=== PATIENT | female | born 1955 | race Caucasian/White ===

== ENCOUNTER 2023-07-16 06:39 | Emergency (ER) | payer OTHER ==
--- NOTE | 2023-07-16 08:09 | RAD REPORT ---
EXAM DESCRIPTION: CT - Head Brain Wo Cont - 07/16/2023 7:17 am CLINICAL HISTORY: HEADACHE COMPARISON: No comparisons TECHNIQUE: Noncontrast head CT images were obtained without IV contrast. Multiplanar reformats were generated and reviewed. All CT scans are performed using dose optimization technique as appropriate and may include automated exposure control or mA/KV adjustment according to patient size. FINDINGS: No intracranial hemorrhage, mass, or edema. Midline structures are unremarkable. Normal ventricular caliber for age. Flowers-white matter differentiation is preserved, without evidence of acute infarct. No abnormal extra- axial fluid collections. Mastoid air cells are well aerated. Scattered inflammatory mucosal thickening the paranasal sinuses w ith up to moderate polypoidal mucosal thickening in the maxillary sinuses. No acute bony findings. IMPRESSION: No evidence of an acute intracranial process.
--- NOTE | 2023-07-16 08:15 | EDPHYS ---
Physician Documentation [facility] Name: Diana Shay Age: 67 yrs Sex: Female : 1955 Arrival Date: 07/16/2023 Time: 06:39 Bed 8 Private MD: Zbigniew Baker HPI: 07/15 07:06 This 67 yrs old Female presents to ER via Ambulatory with complaints of alondra SUSPICIOUS BRUISE UNDER EYE, PT HAS H/O ANEURISM. 07:06 The patient or guardian reports pain, swelling, tenderness. The complaints affect the alondra left cheek and left eye. Context of injury: The problem was sustained at an unknown location. Onset: The symptoms/episode began/occurred 1 day(s) ago. Associated signs and symptoms: Loss of consciousness: This patient did not experience any loss of consciousness. The patient is experiencing pain. Aggravated by nothing. Alleviated by nothing. Severity of symptoms: At their worst the symptoms were mild, yesterday. Historical: - Allergies: 07:01 No Known Allergies; pf1 - PMHx: 07:01 Aneurysm; Hypertensive disorder; Hypothyroidism; brain bleed; pf1 - PSHx: 07:01 colonoscopy; Total abdominal hysterectomy; pf1 - Immunization history:: Adult Immunizations up to date, Client reports receiving the 2nd dose of the Covid vaccine, [employer] Last tetanus immunization: < 10 years ago Flu vaccine is up to date. - Infectious Disease History:: Denies. - Social history:: Smoking status: Patient denies any tobacco usage or history of. Patient/guardian denies using alcohol, street drugs. - Family history:: not pertinent. ROS: 07:06 Constitutional: Negative for fever, chills, and weight loss, Eyes: Negative for injury, alondra pain, redness, and discharge, ENT: Negative for injury, pain, and discharge, Neck: Negative for injury, pain, and swelling, Cardiovascular: Negative for chest pain, palpitations, and edema, Respiratory: Negative for shortness of breath, cough, wheezing, and pleuritic chest pain, Abdomen/GI: Negative for abdominal pain, nausea, vomiting, diarrhea, and constipation, Back: Negative for injury and pain, : Negative for injury, bleeding, discharge, and swelling, MS/Extremity: Negative for injury and deformity, Neuro: Negative for headache, weakness, numbness, tingling, and seizure, Psych: Negative for depression, anxiety, suicide ideation, homicidal ideation, and hallucinations, Allergy/Immunology: Negative for hives, rash, and allergies, Endocrine: Negative for neck swelling, polydipsia, polyuria, polyphagia, and marked weight changes, Hematologic/Lymphatic: Negative for swollen nodes, abnormal bleeding, and unusual bruising, 07:06 Skin: Positive for ecchymosis, of the left cheek and left eye, Exam: 07:06 Constitutional: This is a well developed, well nourished patient who is awake, alert, alondra and in no acute distress. Eyes: Pupils equal round and reactive to light, extra-ocular motions intact. Lids and lashes normal. Conjunctiva and sclera are non-icteric and not injected. Cornea within normal limits. Periorbital areas with no swelling, redness, or edema. ENT: Nares patent. No nasal discharge, no septal abnormalities noted. Tympanic membranes are normal and external auditory canals are clear. Oropharynx with no redness, swelling, or masses, exudates, or evidence of obstruction, uvula midline. Mucous membranes moist. Neck: Trachea midline, no thyromegaly or masses palpated, and no cervical lymphadenopathy. Supple, full range of motion without nuchal rigidity, or vertebral point tenderness. No Meningismus. Chest/axilla: Normal chest wall appearance and motion. Nontender with no deformity. No lesions are appreciated. Cardiovascular: Regular rate and rhythm with a normal S1 and S2. No gallops, murmurs, or rubs. Normal PMI, no JVD. No pulse deficits. Respiratory: Lungs have equal breath sounds bilaterally, clear to auscultation and percussion. No rales, rhonchi or wheezes noted. No increased work of breathing, no retractions or nasal flaring. Abdomen/GI: Soft, non-tender, with normal bowel sounds. No distension or tympany. No guarding or rebound. No evidence of tenderness throughout. Back: No spinal tenderness. No costovertebral tenderness. Full range of motion. Skin: Warm, dry with normal turgor. Normal color with no rashes, no lesions, and no evidence of cellulitis. MS/ Extremity: Pulses equal, no cyanosis. Neurovascular intact. Full, normal range of motion. Neuro: Awake and alert, GCS 15, oriented to person, place, time, and situation. Cranial nerves II-XII grossly intact. Motor strength 5/5 in all extremities. Sensory grossly intact. Cerebellar exam normal. Normal gait. Psych: Awake, alert, with orientation to person, place and time. Behavior, mood, and affect are within normal limits. 07:06 Head/face: Noted is ecchymosis, swelling, that is mild, of the left cheek and left eye, Vital Signs: 06:48 BP 146 / 86; Pulse 69; Resp 18; Temp 97.5; Pulse Ox 97% on R/A; Weight 73.48 kg; Height pf1 5 ft. 4 in. ; Pain 2/10; 07:24 BP 153 / 87; Pulse 71; Resp 18; Pulse Ox 94% on R/A; ld1 09:24 BP 144 / 76; Pulse 75; Resp 18; Pulse Ox 100% on R/A; ld1 06:48 Body Mass Index 27.81 (73.48 kg, 162.56 cm) pf1 06:48 Pain Scale: Adult pf1 [place] Coma Score: 07:12 Eye Response: spontaneous(4). Motor Response: obeys commands(6). Verbal Response: alondra oriented(5). Total: 15. MDM: 07:01 Patient medically screened. alondra 07:12 Differential diagnosis: Contusion of Hematoma on Intracranial bleed- Concussion alondra cerebral contusion, Acute iritis of left eye. Acute glaucoma in Ultraviolet keratitis in. Data reviewed: vital signs, nurses notes, radiologic studies, CT scan. Consideration of Admission/Observation Escalation of care including admission/observation considered. I considered the following discharge prescriptions or medication management in the emergency department Medications were administered in the Emergency Department. See MAR. Test considered but Not performed: Labs: no labs, no ct face. Care significantly affected by the following chronic conditions: Hypertension, hypothyroid, aneurysm. 07/15 08:26 Order name: CBC with Diff; Complete Time: 08:55 [facility] 07/15 08:26 Order name: Comprehensive Metabolic Panel; Complete Time: 09:05 alondra 07/15 08:26 Order name: PT-INR; Complete Time: 08:55 [facility] 07/15 09:02 Order name: CREATININE WHOLE BLOOD; Complete Time: 09:05 EDMS 07/15 07:06 Order name: CT Head Brain wo Cont; Complete Time: 08:12 alondra 07/15 08:26 Order name: CT Head Angio; Complete Time: 09:05 alondra 07/15 08:26 Order name: CT Neck Angio; Complete Time: 09:05 alondra Administered Medications: 08:25 Drug: Amoxicillin-Clavulanate PO 875 mg PO once Route: PO; rs5 08:35 Drug: NS 0.9% IV 500 ml IV at bolus once Route: IV; Rate: bolus; Site: right rs5 antecubital; 08:35 Drug: NS 0.9% IV 1000 ml IV at 125 ml/hr continuous Route: IV; Rate: 125 ml/hr; Site: rs5 left antecubital; Disposition Summary: 07/16/23 09:06 Discharge Ordered Notes: Location: Home(07/16/23 09:06) alondra Problem: new(07/16/23 09:06) alondra Symptoms: have improved(07/16/23 09:06) alondra Condition: Stable(07/16/23 09:06) alondra Diagnosis - Contusion of other part of head - left periorbital(07/16/23 09:06) alondra Followup: alondra - With: Private Physician - When: 2 - 3 days - Reason: Recheck today's complaints, Continuance of care, Re-evaluation by your physician Followup: alondra - With: Walt Bower MD - When: 2 - 3 days - Reason: Recheck today's complaints, Re-evaluation by your physician Discharge Instructions: - Discharge Summary Sheet alondra - Contusion alondra - Hypertension, Adult alondra - Sinusitis, Adult alondra - Sinusitis, Adult, [id number] alondra - Contusion, [id number] alondra - Hypertension, Adult, Qqko-xz-Thag alondra Forms: - Medication Reconciliation Form alondra - Antibiotic Education alondra - Prescription Opioid Use alondra - Patient Portal Instructions alondra - Leadership Thank You Letter [facility] Prescriptions: - Augmentin 875-125 mg Oral tablet - take 1 tablet ORAL route every 12 hours for 14 days; 28 tablet; Refills: 0, alondra Product Selection Permitted Signatures: Dispatcher [employer] Zbigniew Sweeney MD MD cha Finley, Pamala RN RN pf1 Delta Orourke RN RN rs5 Corrections: (The following items were deleted from the chart) 08:25 08:14 Home alondra alondra 08:25 08:14 new alondra alondra 08:25 08:14 have improved [facility] 08:14 Stable [facility] 08:14 Contusion of other part of head - lrft periorbital [facility] 08:26 Head Angio+CT.RAD.BRZ ordered. EDMS EDMS 08: Neck Angio+CT.RAD.BRZ ordered. EDMS EDMS
--- NOTE | 2023-07-16 08:15 | ER ---
Nurse's Notes [facility] Name: Diana Shay Age: 67 yrs Sex: Female : 1955 Arrival Date: 07/16/2023 Time: 06:39 Bed 8 Private MD: Diagnosis: Contusion of other part of head-left periorbital Presentation: 07/15 06:48 Chief complaint: Patient states: bruising to left lower eye,onset 1800 yesterday. pf1 Patient denies any injury. 06:48 Coronavirus screen: Vaccine status: Patient reports receiving the 2nd dose of the covid pf1 vaccine. [email or web address] Client denies travel out of the [place] in the last 14 days. At this time, the client does not indicate any symptoms associated with coronavirus-19. Ebola Screen: Patient negative for fever greater than or equal to 101.5 degrees Fahrenheit, and additional compatible Ebola Virus Disease symptoms. Initial Sepsis Screen: Does the patient meet any 2 criteria? No. Patient's initial sepsis screen is negative. Does the patient have a suspected source of infection? No. Patient's initial sepsis screen is negative. Risk Assessment: Do you want to hurt yourself or someone else? Patient reports no desire to harm self or others. Onset of symptoms was July 15, 2023 at 18:00. 06:48 Method Of Arrival: Ambulatory pf1 06:48 Acuity: MATT 4 pf1 Triage Assessment: 06:48 General: Appears in no apparent distress. comfortable, well groomed, well developed, pf1 Behavior is calm, cooperative, appropriate for age, quiet. Pain: Complains of pain in headache pain of 2 Pain currently is 2 out of 10 on a pain scale. Neuro: No deficits noted. Level of Consciousness is awake, alert, obeys commands, Oriented to person, place, time, situation, Reports headache. Derm: Bruising that is dark purple, on left eye. Historical: - Allergies: 07: No Known Allergies; pf1 - PMHx: 07:01 Aneurysm; Hypertensive disorder; Hypothyroidism; brain bleed; pf1 - PSHx: 07:01 colonoscopy; Total abdominal hysterectomy; pf1 - Immunization history:: Adult Immunizations up to date, Client reports receiving the 2nd dose of the Covid vaccine, [employer] Last tetanus immunization: < 10 years ago Flu vaccine is up to date. - Infectious Disease History:: Denies. - Social history:: Smoking status: Patient denies any tobacco usage or history of. Patient/guardian denies using alcohol, street drugs. - Family history:: not pertinent. Screenin:24 [facility] ED Fall Risk Assessment (Adult) History of falling in the last 3 months, ld1 including since admission No falls in past 3 months (0 pts). Abuse screen: Denies threats or abuse. Denies injuries from another. Nutritional screening: No deficits noted. Tuberculosis screening: No symptoms or risk factors identified. Assessment: 07:24 General: Appears in no apparent distress. comfortable, Behavior is calm, cooperative, ld1 appropriate for age. Pain: Denies pain. Neuro: Level of Consciousness is awake, alert, obeys commands, Oriented to person, place, time, situation. Cardiovascular: Capillary refill < 3 seconds Patient's skin is warm and dry. Respiratory: Airway is patent Respiratory effort is even, unlabored. GI: Abdomen is flat, non-distended. : No signs and/or symptoms were reported regarding the genitourinary system. EENT: No signs and/or symptoms were reported regarding the EENT system. Derm: No signs and/or symptoms reported regarding the dermatologic system. Musculoskeletal: No signs and/or symptoms reported regarding the musculoskeletal system. Vital Signs: 06:48 BP 146 / 86; Pulse 69; Resp 18; Temp 97.5; Pulse Ox 97% on R/A; Weight 73.48 kg; Height pf1 5 ft. 4 in. ; Pain 2/10; 07:24 BP 153 / 87; Pulse 71; Resp 18; Pulse Ox 94% on R/A; ld1 09:24 BP 144 / 76; Pulse 75; Resp 18; Pulse Ox 100% on R/A; ld1 06:48 Body Mass Index 27.81 (73.48 kg, 162.56 cm) pf1 06:48 Pain Scale: Adult pf1 [place] Coma Score: 07:12 Eye Response: spontaneous(4). Motor Response: obeys commands(6). Verbal Response: alondra oriented(5). Total: 15. ED Course: 06:45 Patient arrived in ED. [email or web address] 06:53 Triage completed. pf1 07:01 Zbigniew Melgar MD is Attending Physician. alondra 07:18 CT Head Brain wo Cont In Process Unspecified. EDMS 07:24 Patient has correct armband on for positive identification. Placed in gown. Bed in low ld1 position. Call light in reach. Side rails up X2. copper etcher on. Pulse ox on. NIBP on. Door closed. Noise minimized. Warm blanket given. 07:24 No provider procedures requiring assistance completed. ld1 08:15 Delta Orourke, RN is Primary Nurse. rs5 08:46 CT Head Angio In Process Unspecified. EDMS 08:46 CT Neck Angio In Process Unspecified. EDMS 09:06 Walt Bower MD is Referral Physician. alondra 09:24 Arm band placed on right wrist. ld1 09:24 IV discontinued, intact, bleeding controlled, No redness/swelling at site. ld1 Administered Medications: 08:25 Drug: Amoxicillin-Clavulanate PO 875 mg PO once Route: PO; rs5 08:35 Drug: NS 0.9% IV 500 ml IV at bolus once Route: IV; Rate: bolus; Site: right rs5 antecubital; 08:35 Drug: NS 0.9% IV 1000 ml IV at 125 ml/hr continuous Route: IV; Rate: 125 ml/hr; Site: rs5 left antecubital; Medication: 09:24 VIS not applicable for this client. ld1 Outcome: 08:14 Discharge ordered by . alondra 09:06 Discharge ordered by MD. alondra 09:24 Discharged to home ambulatory, with family, ld1 09:24 Condition: stable 09:24 Discharge instructions given to patient, Instructed on discharge instructions, follow up and referral plans. Demonstrated understanding of instructions, follow-up care, medications, Prescriptions given X 1, 09:26 Patient left the ED. ld1 Signatures: Dispatcher [employer] EDND Zbigniew Melgar MD MD cha Sims, Lauren, RN RN ld1 Iris Beckwith [email or web address] Emy Kendrick RN RN pf1 Delta Orourke, RN RN rs5 Corrections: (The following items were deleted from the chart) 07:05 07:01 Triage completed. pf1 pf1
[2023-07-16] MEDS ORDERED: AMOX/K CLAV 875 MG TAB ONE (08:17)
[2023-07-16] MEDS ORDERED: NA CHLORIDE 0.9% 1,000 ML ONE (08:40)
[2023-07-16] MEDS ORDERED: NA CHLORIDE 0.9% 500 ML ONE (08:40)
[2023-07-16 08:45] LABS: Absolute Eosinophils 0.3 K/uL (0-0.5); Absolute Lymphocytes (CBC) 1.4 K/uL (0.7-4.9); Absolute Monocytes 0.7 K/uL (0.1-1.3); Absolute Neutrophil 2.2 K/uL (1.8-8.0); Basophils % 1.1 % (0-1.3); Eosinophils % 5.8 % (0-4.4); Hematocrit 41.8 % (36.0-45.0); Hemoglobin 13.8 g/dL (12.0-15.0); MCH 29.1 pg (27.0-35.0); MCHC 32.9 g/dL (32.0-36.0); MCV 88.4 fL (80-100); MPV 8.6 fL (7.6-11.3); Monocytes % 15.3 % (3.3-12.3); Neutrophils % 47.8 % (41.7-73.7); Nucleated Red Blood Cells % 0.2 % (0-0); Platelets 219 thou/uL (152-406); RBC Red Blood Cell Count 4.73 M/uL (3.86-4.86); Red Cell Distribution Width 13.2 % (12.1-15.2)
[2023-07-16 08:46] LABS: PT Prothrombin Time 11.2 SECONDS (9.5-12.5); Protime INR 1.02
[2023-07-16 09:02] LABS: Albumin 3.8 g/dL (3.4-5.0); Albumin/Globulin Ratio 1.1 (1.1-1.8); Anion Gap 6.8 mEq/L (5.0-15.0); Bilirubin Total 0.4 mg/dL (0.2-1.0); Globulin 3.6 g/dL (2.3-3.5); Potassium 3.8 mEq/L (3.5-5.1); Protein, Total 7.4 g/dL (6.4-8.2)
--- NOTE | 2023-07-16 09:03 | RAD REPORT ---
EXAM DESCRIPTION: CT - Head angio - 07/16/2023 8:44 am CLINICAL HISTORY: HEADACHE COMPARISON: Head Brain Wo Cont dated 07/16/2023 TECHNIQUE: Axial CT angiography images of the head was performed with multiplanar and maximum intens ity projection reconstructions. Images performed following intravenous administration of 100mL Isovue 370. All CT scans are performed using dose optimization technique as appropriate and may include automated exposure control or mA/KV adjustment according to patient size. FINDINGS: Patent ICA stent along the distal right cavernous/ communicating segments. No evidence of large vessel occlusion. No evidence of aneurysm or dissection flap is detected. No flow-limiting sten osis or vascular malformation identified. Antegrade flow is seen in the vertebral arteries. The left vertebral artery is dominant. Patent bilat eral posterior communicating arteries, with diminutive P1 segments, an anatomical variant. The visualized dural venous sinuses are grossly patent. IMPRESSION: No evidence of large vessel occlusion or flow-limiting stenosis.
--- NOTE | 2023-07-16 09:04 | RAD REPORT ---
EXAM DESCRIPTION: CT - Neck Angio - 07/16/2023 8:44 am CLINICAL HISTORY: HEADACHE COMPARISON: No comparisons TECHNIQUE: Axial CT angiography images of the neck was performed with multiplanar and maximum intens ity projection reconstructions. Images performed following intravenous administration of 100mL Isovue 370. All CT scans are performed using dose optimization technique as appropriate and may include automated exposure control or mA/KV adjustment according to patient size. Quantification of carotid stenosis, if any, is performed according to NASCET criteria. FINDINGS: A left aortic arch is identified with normal three vessel configuration of the great vesse ls. No significant flow abnormality is seen of the common carotid bilaterally. No significant stenosis is identified involving the cervical segments of both internal carotid arteri es. Normal flow is seen within both vertebral arteries. IMPRESSION: No significant flow abnormality of the neck vessels is identified. CAROTID STENOSIS REFERENCE USING NASCET CRITERIA: % ICA stenosis = (1 - narrowest ICA diameter/diameter of distal cervical ICA) x 100. Mild - <50% stenosis. Moderate - 50-69% stenosis. Severe - 70-94% stenosis. Near occlusion - 95-99% stenosis. Occluded - 100% stenosis.
[2023-07-16 09:43] VITALS: BP 144/76; TEMP 97.5; O2SAT 100
== END 2023-07-16 09:26 | disposition home or self-care (01) ==
LOC: ER 06:39
DX: S00.12XA Contusion of left eyelid and periocular area, initial encounter (principal)
CPT/HCPCS: 85025; 36415; 85610; 82565; 80053; 70450; 70496; 70498; 99285; Q9967; J7040; J7030